=== PATIENT | female | born 1995 | race Hispanic/Latino ===

== ENCOUNTER 2023-12-21 22:30 | Emergency (ER) | payer OTHER, SELFPAY ==
[2023-12-21 22:56] LABS: #Basophils 0.01 10x3/uL (0.0-0.2); #Eosinphils 0.08 10x3/uL (0.0-0.5); #Monocytes 0.74 10x3/uL (0.0-1.1); #Neutrophils 4.95 10x3/uL (1.5-8.4); %Basophils 0.1 % (0.0-2.0); %Eosinophils 0.9 % (0.0-6.0); %Lymphocytes 31.2 % (18.0-47.0); %Monocytes 8.7 % (0.0-10.0); %Neutrophils 58.6 % (40.0-75.0); Hematocrit 35.1 % (34.9-44.5); Hemoglobin 12.5 g/dL (12.0-15.5); Mean Corpuscular HGB CONC 35.6 g/dL (32.0-36.0); Mean Corpuscular Hemoglobin 31.5 pg (27.0-33.0); Mean Corpuscular Volume 88.4 fL (81.6-98.3); Platelet Count 235 10x3/uL (150-450); RBC Distribution Width 15.2 % (11.5-14.5); Red Blood Cell (RBC) Count 3.97 10x6/uL (3.90-5.03); White Blood Cell (WBC) Count 8.5 10x3/uL (3.5-10.5)
[2023-12-21] MEDS ORDERED: Morphine 4 MG/ML VIAL ONE ×2 (22:56→23:23)
[2023-12-21] MEDS ORDERED: Ondansetron PF 4 MG/2 ML Vial ONE (22:57)
[2023-12-21 23:08] LABS: ALT (SGPT) 33 U/L (8-55); AST (SGOT) 23 U/L (5-34); Albumin 3.3 g/dL (3.5-5.0); Alkaline Phosphatase 65 U/L (40-110); Anion Gap 13 mmol/L (10-20); BUN (Urea Nitrogen) 9 mg/dL (7.0-18.7); Bilirubin, Total 0.2 mg/dL (0.2-1.2); Calc. Creatinine Clearance 0 mL/min (70-130); Calcium 9.3 mg/dL (7.8-10.44); Carbon Dioxide 18 mmol/L (22-29); Chloride 107 mmol/L (98-107); Estimated GFR 122; Globulin 3.9 g/dL (2.4-3.5); Glucose 112 mg/dL (70-105); Lipase 49 U/L (8-78); Potassium 3.2 mmol/L (3.5-5.1); Protein, Total 7.2 g/dL (6.0-8.3); Sodium 135 mmol/L (136-145)
[2023-12-21] MEDS ORDERED: Potassium Chloride 20 MEQ TAB ONE (23:22)
[2023-12-22 00:33] LABS: Bilirubin Neg (Negative); Blood, Urine 25 (Negative); Clarity Clear (Clear); Glucose, Urine (Dipstick) Normal (Negative); Ketone, Urine Negative (Negative); Leukocyte Negative (Negative); Nitrite Negative (Negative); Protein, Urine (Dipstick) 15 mg/dl (Neg-Trace); Specific Gravity, Urine 1.025 (1.005-1.030); Urobilinogen Normal mg/dL (Less than 2)
[2023-12-22 00:56] LABS: Bacteria/HPF None Seen HPF (None Seen); CAUTI Indications for Culture Pregnancy; RBC/HPF 0-3 HPF (0-3); Squamous Epithelial None Seen HPF (0-3); WBC/HPF 0-3 HPF (0-3)
[2023-12-22 00:57] LABS: Urine Culture Reflex Yes Yes
== END 2023-12-22 01:14 | disposition home or self-care (01) ==
LOC: CSHERS 22:30
DX: O99.891 Other specified diseases and conditions complicating pregnancy (principal); N28.1 Cyst of kidney, acquired; M54.9 Dorsalgia, unspecified; Z55.6 Problems related to health literacy; Z3A.19 19 weeks gestation of pregnancy
CPT/HCPCS: 76770; 76815; 80053; 81001; 83690; 85025; 87086; 93005; 96374; 96375; J2270; J2405

== ENCOUNTER 2024-03-14 11:07 | Day surgery (SDC) | payer OTHER ==
[2024-03-14 12:09] VITALS: BMI 33.5
[2024-03-14 12:18] LABS: Fetal Membranes Rupture No Membranes Rupture (No Rupture)
== END 2024-03-14 15:35 | disposition home health service (06) ==
LOC: CSHLD/OP 11:07
PROVIDERS: ATTEND Family Medicine
DX: O23.593 Infection of other part of genital tract in pregnancy, third trimester (principal); Z03.71 Encounter for suspected problem with amniotic cavity and membrane ruled out; N89.8 Other specified noninflammatory disorders of vagina; Z3A.31 31 weeks gestation of pregnancy
CPT/HCPCS: 76819; 84112; 87480; 87510; 87660; 99284

== ENCOUNTER 2024-04-26 21:18 | Day surgery (SDC) | payer OTHER ==
[2024-04-26 21:47] VITALS: BMI 33.0
[2024-04-26 23:05] LABS: Fetal Membranes Rupture No Membranes Rupture (No Rupture)
[2024-04-26] MEDS ORDERED: hydrALAZINE 20 MG/ML VIAL SLOW IVP PRN (23:33)
[2024-04-27 00:08] LABS: Bilirubin Neg (Negative); Blood, Urine 10 (Negative); Clarity Clear (Clear); Glucose, Urine (Dipstick) Normal (Negative); Ketone, Urine Negative (Negative); Leukocyte 500 (Negative); Nitrite Negative (Negative); Protein, Urine (Dipstick) Negative (Neg-Trace); Specific Gravity, Urine 1.005 (1.005-1.030); Urobilinogen Normal mg/dL (Less than 2)
[2024-04-27 00:15] LABS: CAUTI Indications for Culture Pregnancy
[2024-04-27 00:16] LABS: Bacteria/HPF 1+ HPF (None Seen); Urine Culture Reflex No No; Urine Culture Reflex Yes Yes
== END 2024-04-27 01:10 | disposition home or self-care (01) ==
LOC: CSHLD/OP 21:18
PROVIDERS: ATTEND Family Medicine
DX: O47.1 False labor at or after 37 completed weeks of gestation (principal); O23.43 Unspecified infection of urinary tract in pregnancy, third trimester; O98.813 Other maternal infectious and parasitic diseases complicating pregnancy, third trimester; B37.31 Acute candidiasis of vulva and vagina; B96.89 Other specified bacterial agents as the cause of diseases classified elsewhere; Z3A.37 37 weeks gestation of pregnancy
CPT/HCPCS: 81001; 84112; 87086; 87480; 87510; 87660; 99285

== ENCOUNTER 2024-04-27 08:20 | Inpatient (IN) | payer MEDICAID, OTHER, SELFPAY ==
[2024-04-27] MEDS: metroNIDAZOLE 500 MG TAB PO SCH (09:38)
[2024-04-27] MEDS: cefTRIAXone (ROCEPHIN) 1 GM VIAL IM SCH (09:38)
[2024-04-27] MEDS: Lidocaine 1% PF 5 ML VIAL FS SCH (09:39)
[2024-04-27] MEDS: Fluconazole 100 MG TAB PO SCH (10:21)
[2024-04-27] MEDS ORDERED: fentaNYL 50 mcg/mL 1 mL Vial SLOW IVP PRN (11:28)
[2024-04-27] MEDS ORDERED: Ondansetron PF 4 MG/2 ML Vial IVP PRN (11:28)
[2024-04-27] MEDS ORDERED: Acetaminophen 500 MG TAB PO PRN (11:28)
[2024-04-27] MEDS ORDERED: hydrALAZINE 20 MG/ML VIAL SLOW IVP PRN (11:28)
[2024-04-27] MEDS ORDERED: Lidocaine 1% (PF) 30 ML VIAL SC PRN (11:28)
[2024-04-27] MEDS ORDERED: Promethazine HCl 25 MG/ML VIAL IM PRN (11:28)
[2024-04-27] MEDS ORDERED: Oxytocin 30 units/NS 500 ML 500 ML IV SCH (11:30)
[2024-04-27 12:19] VITALS: BMI 33.0
[2024-04-27 12:40] LABS: Hematocrit 32.5 % (34.9-44.5); Hemoglobin 10.5 g/dL (12.0-15.5); Mean Corpuscular HGB CONC 32.3 g/dL (32.0-36.0); Mean Corpuscular Volume 83.5 fL (81.6-98.3); Mean Platelet Volume 12.5 fL (7.4-10.4); Platelet Count 193 10x3/uL (150-450); RBC Distribution Width 14.8 % (11.5-14.5); Red Blood Cell (RBC) Count 3.89 10x6/uL (3.90-5.03); White Blood Cell (WBC) Count 8.1 10x3/uL (3.5-10.5)
[2024-04-27 13:08] LABS: HBsAg Index 0.25 S/CO (0-0.99); Hep B Surf Ag - L&D Non-Reactive S/CO (NonReactive)
[2024-04-27 13:10] LABS: HIV (1/2) Antibody/Antigen Non-Reactive (NonReactive); HIV 1/2 INDEX 0.07 S/CO (<1.00)
[2024-04-27 13:11] LABS: Syphilis Antibody Nonreactive (Nonreactive); Syphilis Antibody Index 0.04 S/CO (<1.00 Non-Reactive)
[2024-04-27] MEDS: Lactated Ringer's 1,000 ML IV SCH (13:54)
[2024-04-27] MEDS: Oxytocin 30 units/NS 500 ML 500 ML IV SCH (13:55)
[2024-04-27] MEDS: fentaNYL/Ropivacaine Epidural 100 ML ONE (15:45)
[2024-04-28] MEDS ORDERED: hydrALAZINE 20 MG/ML VIAL SLOW IVP PRN (00:06)
[2024-04-28] MEDS ORDERED: diphenhydrAMINE 25 MG CAP PO PRN (00:06)
[2024-04-28] MEDS ORDERED: Ondansetron PF 4 MG/2 ML Vial IVP PRN (00:06)
[2024-04-28] MEDS ORDERED: Benzocaine-Menthol 82.5 ML CAN TOP PRN (00:06)
[2024-04-28] MEDS ORDERED: Promethazine HCl 25 MG/ML VIAL IM PRN (00:06)
[2024-04-28] MEDS ORDERED: Milk Of Magnesia 30 ML UDCUP PO PRN (00:06)
[2024-04-28] MEDS ORDERED: Lanolin Ointment 7 GM TUBE TOP PRN (00:06)
[2024-04-28] MEDS ORDERED: Bisacodyl 10 MG SUPP PR PRN (00:06)
[2024-04-28] MEDS: Ibuprofen 800 MG TAB PO SCH (01:41)
[2024-04-28] MEDS: Dexmedetomidine 200 MCG/2 ML VIAL ONE (02:34)
[2024-04-28] MEDS: Boostrix 0.5 ML (Tdap) VIAL (>/=7 yrs of age) IM ONE (02:34)
[2024-04-28] MEDS: Ferrous Sulfate 325 MG TAB PO SCH (07:11)
[2024-04-28] MEDS: Docusate 100 MG CAP PO SCH (08:13)
[2024-04-28] MEDS: Prenatal Vitamin 1 TAB PO SCH (08:13)
[2024-04-28] MEDS: HYDROcodone/Acetaminophen 5/325 mg Tablet PO PRN (08:14)
[2024-04-28] MEDS ORDERED: Fluconazole 100 MG TAB PO SCH (09:00)
[2024-04-28 20:21] VITALS: BP 129/64; TEMP 98.4
== END 2024-04-29 16:15 | disposition home or self-care (01) | DRG 807 ==
LOC: CSHLD/OP 08:20 → CSHLD 11:42 → CSHPP 04-28
PROVIDERS: ADMIT Family Medicine; ATTEND Family Medicine
PROC: 10E0XZZ Delivery of Products of Conception, External Approach (ICD-10-PCS; principal; 2024-04-27)
PROC: 10907ZC Drainage of Amniotic Fluid, Therapeutic from Products of Conception, Via Natural or Artificial Opening (ICD-10-PCS; 2024-04-27)
PROC: 0HQ9XZZ Repair Perineum Skin, External Approach (ICD-10-PCS; 2024-04-27)
DX: O69.81X0 Labor and delivery complicated by cord around neck, without compression, not applicable or unspecified (principal); Z37.0 Single live birth; Z3A.37 37 weeks gestation of pregnancy; O70.0 First degree perineal laceration during delivery
CPT/HCPCS: 51702; 85027; 86780; 86850; 86900; 86901; 87340; 87389; 99285; J0696; J2590; J7120